=== PATIENT | male | born 1940 | race Caucasian/White ===

== ENCOUNTER 2018-09-28 15:19 | Inpatient (IN) | payer OTHER, MEDICAID ==
[~2018-09-28] VITALS: Ht 170.2 cm; Wt 51.7 kg
[2018-09-28 18:02] VITALS: BP_SYST 109
[2018-09-28] MEDS ORDERED: LevALBUTEROL HCL 1.25 MG/0.5 ML *CONC.* VIAL.NEB (XOPENEX CONC.) INH PRN (19:00)
[2018-09-28] MEDS ORDERED: ACETAMINOPHEN 325 MG TABLET PO PRN (19:00)
[2018-09-28 19:24] LABS: BASOPHILS % (AUTO) 0.3 % (0.0-2.0); EOSINOPHILS # (AUTO) 0.4 K/uL (0.0-0.4); EOSINOPHILS % (AUTO) 4.6 % (0.0-4.0); HEMATOCRIT 49.2 % (36-54); HEMOGLOBIN 15.9 g/dL (14.0-18.0); LYMPHOCYTES # (AUTO) 2.3 K/uL (1.0-5.5); LYMPHOCYTES % (AUTO) 25.3 % (20.5-51.5); MEAN CORPUSCULAR HEMOGLOBIN 31 pg (27-31); MEAN CORPUSCULAR HGB CONC 32 % (32-36); MEAN CORPUSCULAR VOLUME 97 fL (79.0-98.0); MONOCYTES # (AUTO) 0.7 K/uL (0.0-1.0); MONOCYTES % (AUTO) 7.7 % (1.7-9.3); NEUTROPHILS # (AUTO) 5.7 K/uL (1.8-7.7); NEUTROPHILS % (AUTO) 62.1 % (40.0-70.0); PLATELET COUNT (AUTO) 160 K/uL (130-430); RED BLOOD CELL COUNT(AUTO) 5.08 MIL/uL (4.2-6.2); RED CELL DISTRIBUTION WIDTH 14.3 % (9.0-15.0); WHITE BLOOD COUNT (AUTO) 9.1 K/uL (4.8-10.8)
[2018-09-28 20:07] VITALS: BP_SYST 109
[2018-09-28 20:15] VITALS: BP_SYST 149
[2018-09-28 20:15] LABS: ALANINE AMINOTRANSFERASE 30 U/L (12-78); ANION GAP 3 (5-15); ASPARTATE AMINOTRANSFERASE 34 U/L (10-37); CALCIUM 9.6 mg/dL (8.4-11.0); CHLORIDE 107 mmol/L (98-107); CREATININE 1.04 mg/dL (0.55-1.30); GLUCOSE 139 mg/dL (70-99); SODIUM SERUM 139 mmol/L (136-145); TOTAL BILIRUBIN 0.4 mg/dL (0.0-1.0); UREA NITROGEN, BLOOD 36 mg/dL (8-21)
[2018-09-28 20:18] LABS: POTASSIUM 4.4 mmol/L (3.5-5.1)
[2018-09-28] MEDS ORDERED: CEFEPIME 1 GM in D5W 50 ML IV ONE (21:00)
[2018-09-28] MEDS ORDERED: KCL 20 mEq in 100 mL (PREMIX) 100 ML IV ONE (22:05)
[2018-09-28] MEDS: KCL 20 mEq in 0.45% NS 1000 mL 1,000 ML IV SCH (22:16)
[2018-09-28] MEDS ORDERED: CEFEPIME 1 GM/VIAL (MAXIPIME) ONE (22:19)
[2018-09-28] MEDS: ENOXAPARIN SODIUM 40 MG/0.4 ML SYRINGE SUBCUT SCH (22:21)
[2018-09-28] MEDS: CEFEPIME 1 GM in D5W 50 ML IV SCH (22:23)
[2018-09-28] MEDS: LevALBUTEROL HCL 1.25 MG/0.5 ML *CONC.* VIAL.NEB (XOPENEX CONC.) INH SCH (23:06)
[2018-09-29 00:37] VITALS: BP_SYST 150
[2018-09-29 00:44] LABS: BILIRUBIN,URINE NEGATIVE (NEGATIVE); BLOOD, URINE NEGATIVE (NEGATIVE); CLARITY/URINE CLEAR (CLEAR); COLOR,URINE YELLOW (YELLOW); GLUCOSE,URINE TRACE (NEGATIVE); KETONES,URINE TRACE (NEGATIVE); LEUKOCYTE ESTERASE ,URINE NEGATIVE (NEGATIVE); NITRITE, URINE NEGATIVE (NEGATIVE); PROTEIN URINE NEGATIVE (NEGATIVE); UROBILINOGEN,URINE 0.2 (0.2-1.0)
[2018-09-29] MEDS ORDERED: OLANZapine 2.5 MG TABLET PO ONE (05:00)
[2018-09-29] MEDS: LevALBUTEROL HCL 1.25 MG/0.5 ML *CONC.* VIAL.NEB (XOPENEX CONC.) INH SCH ×3 (07:38→23:00)
[2018-09-29 08:00] VITALS: BP_SYST 133
[2018-09-29] MEDS: TAMSULOSIN HCL 0.4 MG CAP PO SCH (08:44)
[2018-09-29] MEDS: NICOTINE 21 MG/24 HR PATCH.TD24 TD SCH (08:44)
[2018-09-29] MEDS: KCL 20 mEq in 0.45% NS 1000 mL 1,000 ML IV SCH (12:23)
[2018-09-29 12:59] VITALS: BP_SYST 127
[2018-09-29 16:10] VITALS: BP_SYST 137
[2018-09-29 20:02] VITALS: BP_SYST 135
[2018-09-29] MEDS: CEFEPIME 1 GM in D5W 50 ML IV SCH (21:27)
[2018-09-29] MEDS: ENOXAPARIN SODIUM 40 MG/0.4 ML SYRINGE SUBCUT SCH (21:35)
[2018-09-30] MEDS: KCL 20 mEq in 0.45% NS 1000 mL 1,000 ML IV SCH ×2 (01:04→13:00)
[2018-09-30 02:10] VITALS: BP_SYST 126
[2018-09-30 06:07] LABS: % FREE PSA 36.2 % (.); FREE PSA 0.47 ng/mL; PROSTATE SPECIFIC AG TOTAL 1.3 ng/mL (0.0-4.0)
[2018-09-30] MEDS: LevALBUTEROL HCL 1.25 MG/0.5 ML *CONC.* VIAL.NEB (XOPENEX CONC.) INH SCH ×3 (07:00→23:00)
[2018-09-30 08:06] VITALS: BP_SYST 160
[2018-09-30] MEDS: TAMSULOSIN HCL 0.4 MG CAP PO SCH (08:17)
[2018-09-30] MEDS: NICOTINE 21 MG/24 HR PATCH.TD24 TD SCH (08:17)
[2018-09-30 08:36] VITALS: BP_SYST 141
[2018-09-30 11:38] VITALS: BP_SYST 137
[2018-09-30 15:02] VITALS: BP_SYST 132
[2018-09-30] MEDS: PEG 400/HYPROMELLOSE/GLYCERIN 15 ML DROPS OP SCH ×2 (17:00→20:43)
[2018-09-30] MEDS: CEFEPIME 1 GM in D5W 50 ML IV SCH (20:44)
[2018-09-30 20:45] VITALS: BP_SYST 141
[2018-09-30] MEDS: ENOXAPARIN SODIUM 40 MG/0.4 ML SYRINGE SUBCUT SCH (21:12)
[2018-10-01 02:38] VITALS: BP_SYST 130
[2018-10-01] MEDS: KCL 20 mEq in 0.45% NS 1000 mL 1,000 ML IV SCH ×2 (03:10→16:24)
[2018-10-01] MEDS: LevALBUTEROL HCL 1.25 MG/0.5 ML *CONC.* VIAL.NEB (XOPENEX CONC.) INH SCH ×3 (07:22→23:07)
[2018-10-01 08:00] VITALS: BP_SYST 139
[2018-10-01] MEDS: TAMSULOSIN HCL 0.4 MG CAP PO SCH (08:07)
[2018-10-01] MEDS: NICOTINE 21 MG/24 HR PATCH.TD24 TD SCH (08:07)
[2018-10-01] MEDS: PEG 400/HYPROMELLOSE/GLYCERIN 15 ML DROPS OP SCH ×4 (08:08→20:19)
[2018-10-01 13:42] VITALS: BP_SYST 121
[2018-10-01 17:47] VITALS: BP_SYST 129
[2018-10-01 20:00] VITALS: BP_SYST 127
[2018-10-01] MEDS: CEFEPIME 1 GM in D5W 50 ML IV SCH (20:18)
[2018-10-01] MEDS: ENOXAPARIN SODIUM 40 MG/0.4 ML SYRINGE SUBCUT SCH (20:34)
[2018-10-01 23:03] VITALS: BP_SYST 130
[2018-10-02] MEDS: KCL 20 mEq in 0.45% NS 1000 mL 1,000 ML IV SCH (05:39)
[2018-10-02 06:14] LABS: BASOPHILS % (AUTO) 0.4 % (0.0-2.0); EOSINOPHILS # (AUTO) 0.4 K/uL (0.0-0.4); EOSINOPHILS % (AUTO) 5.4 % (0.0-4.0); HEMATOCRIT 41.3 % (36-54); HEMOGLOBIN 13.4 g/dL (14.0-18.0); LYMPHOCYTES # (AUTO) 1.8 K/uL (1.0-5.5); LYMPHOCYTES % (AUTO) 25.2 % (20.5-51.5); MEAN CORPUSCULAR HEMOGLOBIN 31 pg (27-31); MEAN CORPUSCULAR HGB CONC 32 % (32-36); MEAN CORPUSCULAR VOLUME 96 fL (79.0-98.0); MONOCYTES # (AUTO) 0.7 K/uL (0.0-1.0); MONOCYTES % (AUTO) 10.1 % (1.7-9.3); NEUTROPHILS # (AUTO) 4.4 K/uL (1.8-7.7); NEUTROPHILS % (AUTO) 58.9 % (40.0-70.0); PLATELET COUNT (AUTO) 141 K/uL (130-430); RED CELL DISTRIBUTION WIDTH 14.2 % (9.0-15.0); WHITE BLOOD COUNT (AUTO) 7.3 K/uL (4.8-10.8)
[2018-10-02 06:43] LABS: ANION GAP 6 (5-15); CHLORIDE 104 mmol/L (98-107); GLUCOSE 145 mg/dL (70-99); PHOSPHORUS 3.5 mg/dL (2.7-4.5); POTASSIUM 5.1 mmol/L (3.5-5.1); SODIUM SERUM 140 mmol/L (136-145); UREA NITROGEN, BLOOD 15 mg/dL (8-21)
[2018-10-02] MEDS: LevALBUTEROL HCL 1.25 MG/0.5 ML *CONC.* VIAL.NEB (XOPENEX CONC.) INH SCH (07:25)
[2018-10-02 08:00] VITALS: BP_SYST 135
[2018-10-02] MEDS: PEG 400/HYPROMELLOSE/GLYCERIN 15 ML DROPS OP SCH ×2 (08:49→13:09)
[2018-10-02] MEDS: TAMSULOSIN HCL 0.4 MG CAP PO SCH (08:51)
[2018-10-02] MEDS: NICOTINE 21 MG/24 HR PATCH.TD24 TD SCH (08:51)
[2018-10-02 11:55] VITALS: BP_SYST 137
[2018-10-02 12:32] VITALS: BP_SYST 137
== END 2018-10-02 13:35 | DRG 191 ==
LOC: SMU 17:12
PROVIDERS: ADMIT Family Medicine; ATTEND Family Medicine
DX: J44.1 Chronic obstructive pulmonary disease with (acute) exacerbation (principal); N39.0 Urinary tract infection, site not specified; N40.0 Benign prostatic hyperplasia without lower urinary tract symptoms; I50.9 Heart failure, unspecified; M81.0 Age-related osteoporosis without current pathological fracture; F17.200 Nicotine dependence, unspecified, uncomplicated; M19.90 Unspecified osteoarthritis, unspecified site
CPT/HCPCS: 36415; 80048; 80053; 81003; 83735-TC; 84100-TC; 85025; 94640; 94760; 97116-GP; 97530-GP; G0103; J0692; J1650; J3480; J7060; J7612

== ENCOUNTER 2019-01-19 15:00 | Inpatient (IN) | payer OTHER ==
[~2019-01-19] VITALS: Ht 167.6 cm; Wt 53.1 kg
[2019-01-19 17:57] VITALS: BP_SYST 124
[2019-01-19] MEDS ORDERED: ACET-2165 PO (19:25)
[2019-01-19] MEDS ORDERED: TAMS-11 PO (19:25)
[2019-01-19] MEDS ORDERED: MOM PO (19:25)
[2019-01-19] MEDS ORDERED: DOCU-144 PO (19:25)
[2019-01-19] MEDS ORDERED: NICO-680 TD (19:25)
[2019-01-19] MEDS ORDERED: LEVA1.2527 INH (19:25)
[2019-01-19 19:52] LABS: ALANINE AMINOTRANSFERASE 22 U/L (12-78); ALBUMIN 3.2 g/dL (3.4-4.8); ANION GAP 5 (5-15); ASPARTATE AMINOTRANSFERASE 28 U/L (10-37); CALCIUM 8.7 mg/dL (8.4-11.0); CHLORIDE 104 mmol/L (98-107); CREATININE 0.98 mg/dL (0.55-1.30); GLUCOSE 99 mg/dL (70-99); SODIUM SERUM 133 mmol/L (136-145); TOTAL BILIRUBIN 0.5 mg/dL (0.0-1.0); UREA NITROGEN, BLOOD 19 mg/dL (8-21)
[2019-01-19 19:56] LABS: HEMATOCRIT 43.2 % (36-54); HEMOGLOBIN 14.5 g/dL (14.0-18.0); LYMPHOCYTES % (AUTO) 29.4 % (20.5-51.5); MEAN CORPUSCULAR HEMOGLOBIN 32 pg (27-31); MEAN CORPUSCULAR HGB CONC 34 % (32-36); MEAN CORPUSCULAR VOLUME 95 fL (79.0-98.0); NEUTROPHILS % (AUTO) 54.5 % (40.0-70.0); PLATELET COUNT (AUTO) 178 K/uL (130-430); RED BLOOD CELL COUNT(AUTO) 4.57 MIL/uL (4.2-6.2); RED CELL DISTRIBUTION WIDTH 15.2 % (9.0-15.0); WHITE BLOOD COUNT (AUTO) 8.7 K/uL (4.8-10.8)
[2019-01-19 19:57] LABS: BASOPHILS # (AUTO) 0.1 K/uL (0.0-0.2); BASOPHILS % (AUTO) 1.1 % (0.0-2.0); EOSINOPHILS # (AUTO) 0.5 K/uL (0.0-0.4); EOSINOPHILS % (AUTO) 6.3 % (0.0-4.0); LYMPHOCYTES # (AUTO) 2.6 K/uL (1.0-5.5); MONOCYTES # (AUTO) 0.8 K/uL (0.0-1.0); MONOCYTES % (AUTO) 8.7 % (1.7-9.3); NEUTROPHILS # (AUTO) 4.8 K/uL (1.8-7.7)
[2019-01-19] MEDS ORDERED: ACETAMINOPHEN 325 MG TABLET PO PRN (20:45)
[2019-01-19] MEDS ORDERED: MILK OF MAGNESIA 30 ML UDC PO SCH (20:45)
[2019-01-19] MEDS ORDERED: KCL 20 mEq in D5NS 1000 mL 1,000 ML IV SCH (20:45)
[2019-01-19] MEDS: cefTRIAXone 1 GM in D5W 50 ML IV SCH (21:00)
[2019-01-19] MEDS ORDERED: cefTRIAXone 1 GM VIAL ONE (21:30)
[2019-01-19] MEDS ORDERED: AZITHROMYCIN 500 MG/VIAL (ZITHROMAX) IV ONE ×2 (21:30→21:31)
[2019-01-19 22:00] VITALS: BP_SYST 128
[2019-01-19] MEDS: AZITHROMYCIN 500 MG in NS 250 ML IV SCH (22:00)
[2019-01-19] MEDS: DOCUSATE SODIUM 100 MG CAPSULE PO SCH (22:51)
[2019-01-19] MEDS: TEMAZEPAM 15 MG CAPSULE PO SCH (22:51)
[2019-01-19] MEDS: D5NS 1,000 ML IV SCH (23:49)
[2019-01-19 23:53] VITALS: BP_SYST 136
[2019-01-20] MEDS ORDERED: LevALBUTEROL HCL 1.25 MG/0.5 ML *CONC.* VIAL.NEB (XOPENEX CONC.) INH PRN (04:45)
[2019-01-20 05:35] VITALS: BP_SYST 136
[2019-01-20 07:26] LABS: ALANINE AMINOTRANSFERASE 16 U/L (12-78); ALBUMIN 3.3 g/dL (3.4-4.8); ANION GAP 3 (5-15); ASPARTATE AMINOTRANSFERASE 19 U/L (10-37); CALCIUM 8.7 mg/dL (8.4-11.0); CHLORIDE 108 mmol/L (98-107); GLUCOSE 94 mg/dL (70-99); POTASSIUM 4.5 mmol/L (3.5-5.1); SODIUM SERUM 140 mmol/L (136-145); TOTAL BILIRUBIN 0.4 mg/dL (0.0-1.0); UREA NITROGEN, BLOOD 19 mg/dL (8-21)
[2019-01-20 07:30] LABS: WHITE BLOOD COUNT (AUTO) 6.6 K/uL (4.8-10.8)
[2019-01-20 07:32] LABS: HEMOGLOBIN 14.2 g/dL (14.0-18.0); RED BLOOD CELL COUNT(AUTO) 4.46 MIL/uL (4.2-6.2)
[2019-01-20 07:33] LABS: BASOPHILS # (AUTO) 0.1 K/uL (0.0-0.2); BASOPHILS % (AUTO) 0.9 % (0.0-2.0); EOSINOPHILS # (AUTO) 0.4 K/uL (0.0-0.4); HEMATOCRIT 42.2 % (36-54); LYMPHOCYTES # (AUTO) 2.4 K/uL (1.0-5.5); LYMPHOCYTES % (AUTO) 36.9 % (20.5-51.5); MEAN CORPUSCULAR HEMOGLOBIN 32 pg (27-31); MEAN CORPUSCULAR HGB CONC 34 % (32-36); MEAN CORPUSCULAR VOLUME 95 fL (79.0-98.0); MONOCYTES # (AUTO) 0.6 K/uL (0.0-1.0); MONOCYTES % (AUTO) 9.3 % (1.7-9.3); NEUTROPHILS # (AUTO) 3.1 K/uL (1.8-7.7); NEUTROPHILS % (AUTO) 46.9 % (40.0-70.0); PLATELET COUNT (AUTO) 144 K/uL (130-430); RED CELL DISTRIBUTION WIDTH 15.3 % (9.0-15.0)
[2019-01-20 08:03] VITALS: BP_SYST 133
[2019-01-20] MEDS: DOCUSATE SODIUM 100 MG CAPSULE PO SCH ×2 (08:53→21:00)
[2019-01-20] MEDS: NICOTINE 21 MG/24 HR PATCH.TD24 TD SCH ×3 (08:53→09:18)
[2019-01-20] MEDS: TAMSULOSIN HCL 0.4 MG CAP PO SCH (08:54)
[2019-01-20] MEDS: ENOXAPARIN SODIUM 40 MG/0.4 ML SYRINGE SUBCUT SCH (08:56)
[2019-01-20] MEDS: D5NS 1,000 ML IV SCH (12:08)
[2019-01-20 13:10] VITALS: BP_SYST 174
[2019-01-20 15:31] VITALS: BP_SYST 142
[2019-01-20 16:49] VITALS: BP_SYST 146
[2019-01-20 20:00] VITALS: BP_SYST 145
[2019-01-20] MEDS: TEMAZEPAM 15 MG CAPSULE PO SCH (21:11)
[2019-01-20] MEDS: cefTRIAXone 1 GM in D5W 50 ML IV SCH (21:12)
[2019-01-20] MEDS: AZITHROMYCIN 500 MG in NS 250 ML IV SCH (21:54)
[2019-01-21 00:28] VITALS: BP_SYST 140
[2019-01-21] MEDS: D5NS 1,000 ML IV SCH ×2 (05:45→23:57)
[2019-01-21 08:06] VITALS: BP_SYST 129
[2019-01-21] MEDS: DOCUSATE SODIUM 100 MG CAPSULE PO SCH ×2 (09:00→21:00)
[2019-01-21] MEDS: TAMSULOSIN HCL 0.4 MG CAP PO SCH (09:06)
[2019-01-21] MEDS: ENOXAPARIN SODIUM 40 MG/0.4 ML SYRINGE SUBCUT SCH (09:07)
[2019-01-21 11:54] VITALS: BP_SYST 136
[2019-01-21] MEDS ORDERED: NICOTINE 21 MG/24 HR PATCH.TD24 TD ONE (16:00)
[2019-01-21] MEDS ORDERED: KETOROLAC TROMETHAMINE 15 MG VIAL IVP PRN (18:45)
[2019-01-21 20:00] VITALS: BP_SYST 147
[2019-01-21] MEDS: TEMAZEPAM 15 MG CAPSULE PO SCH (21:05)
[2019-01-21] MEDS: cefTRIAXone 1 GM in D5W 50 ML IV SCH (21:10)
[2019-01-21] MEDS: AZITHROMYCIN 500 MG in NS 250 ML IV SCH (21:11)
[2019-01-22 01:32] VITALS: BP_SYST 118
[2019-01-22] MEDS: DOCUSATE SODIUM 100 MG CAPSULE PO SCH ×2 (09:00→21:00)
[2019-01-22] MEDS: NICOTINE 21 MG/24 HR PATCH.TD24 TD SCH (09:29)
[2019-01-22] MEDS: TAMSULOSIN HCL 0.4 MG CAP PO SCH (09:30)
[2019-01-22] MEDS: ENOXAPARIN SODIUM 40 MG/0.4 ML SYRINGE SUBCUT SCH (09:31)
[2019-01-22 11:31] VITALS: BP_SYST 144
[2019-01-22 15:11] VITALS: BP_SYST 144
[2019-01-22] MEDS: D5NS 1,000 ML IV SCH ×2 (17:10→21:24)
[2019-01-22 20:00] VITALS: BP_SYST 146
[2019-01-22] MEDS: TEMAZEPAM 15 MG CAPSULE PO SCH (21:23)
[2019-01-22] MEDS: cefTRIAXone 1 GM in D5W 50 ML IV SCH (21:24)
[2019-01-22] MEDS: AZITHROMYCIN 500 MG in NS 250 ML IV SCH (21:24)
[2019-01-23 00:36] VITALS: BP_SYST 135
[2019-01-23] MEDS: D5NS 1,000 ML IV SCH (08:00)
[2019-01-23 08:17] VITALS: BP_SYST 149
[2019-01-23] MEDS: DOCUSATE SODIUM 100 MG CAPSULE PO SCH (08:20)
[2019-01-23] MEDS: NICOTINE 21 MG/24 HR PATCH.TD24 TD SCH (08:21)
[2019-01-23] MEDS: ENOXAPARIN SODIUM 40 MG/0.4 ML SYRINGE SUBCUT SCH (08:23)
[2019-01-23] MEDS: TAMSULOSIN HCL 0.4 MG CAP PO SCH (08:29)
[2019-01-23 12:08] VITALS: BP_SYST 166
[2019-01-23 12:50] VITALS: BP_SYST 166
[2019-01-23 15:27] VITALS: BP_SYST 159
== END 2019-01-23 15:25 | DRG 178 ==
LOC: SMU 17:33 → STU 18:38 → SMU 01-21 17:30
PROVIDERS: ADMIT Family Medicine; ATTEND Family Medicine
DX: J15.6 Pneumonia due to other Gram-negative bacteria (principal); J44.0 Chronic obstructive pulmonary disease with (acute) lower respiratory infection; J44.1 Chronic obstructive pulmonary disease with (acute) exacerbation; M19.90 Unspecified osteoarthritis, unspecified site; N40.0 Benign prostatic hyperplasia without lower urinary tract symptoms; F03.90 Unspecified dementia, unspecified severity, without behavioral disturbance, psychotic disturbance, mood disturbance, and anxiety; F17.200 Nicotine dependence, unspecified, uncomplicated
CPT/HCPCS: 36415; 71045; 80053; 85025; 87081; G0378; J0456; J0696; J1650; J7042; J7050; J7060

== ENCOUNTER 2019-04-22 19:21 | Emergency (ER) | payer OTHER ==
[~2019-04-22] VITALS: Ht 167.6 cm; Wt 53.5 kg
[~2019-04-22 19:21] MED LIST: ACET-2165 PO; DOCU-144 PO; LEVA1.2527 INH; MOM PO; NICO-680 TD; TAMS-11 PO
[2019-04-22 19:45] VITALS: BP_SYST 144
[2019-04-22] MEDS ORDERED: ESCI10TA PO (20:16)
[2019-04-22] MEDS ORDERED: LEVE250T2 PO (20:16)
[2019-04-22] MEDS ORDERED: ASA81 PO (20:16)
[2019-04-22] MEDS ORDERED: PROP10TA10 PO (20:16)
[2019-04-22] MEDS ORDERED: IPRATROPIUM/ALBUTEROL SULFATE 3 ML AMPUL.NEB (DUONEB) INH ONE (21:15)
[2019-04-22] MEDS ORDERED: cefTRIAXone 1 GM VIAL IM ONE (21:30)
[2019-04-22] MEDS ORDERED: AZITHROMYCIN 250 MG TABLET PO ONE (21:30)
[2019-04-22 21:31] LABS: BASOPHILS # (AUTO) 0.1 K/uL (0.0-0.2); BASOPHILS % (AUTO) 0.8 % (0.0-2.0); EOSINOPHILS # (AUTO) 0.5 K/uL (0.0-0.4); HEMOGLOBIN 13.4 g/dL (14.0-18.0); MEAN CORPUSCULAR HEMOGLOBIN 31 pg (27-31); MONOCYTES # (AUTO) 0.7 K/uL (0.0-1.0); NEUTROPHILS # (AUTO) 3.9 K/uL (1.8-7.7); PLATELET COUNT (AUTO) 107 K/uL (130-430)
[2019-04-22 21:36] LABS: EOSINOPHILS % (AUTO) 6.3 % (0.0-4.0); HEMATOCRIT 40.3 % (36-54); LYMPHOCYTES % (AUTO) 28.3 % (20.5-51.5); MEAN CORPUSCULAR HGB CONC 33 % (32-36); MEAN CORPUSCULAR VOLUME 94 fL (79.0-98.0); MONOCYTES % (AUTO) 10.2 % (1.7-9.3); NEUTROPHILS % (AUTO) 54.4 % (40.0-70.0); RED BLOOD CELL COUNT(AUTO) 4.31 MIL/uL (4.2-6.2); RED CELL DISTRIBUTION WIDTH 14.9 % (9.0-15.0); WHITE BLOOD COUNT (AUTO) 7.2 K/uL (4.8-10.8)
[2019-04-23 05:38] VITALS: BP_SYST 139
== END 2019-04-23 05:38 | disposition home or self-care (01) ==
LOC: SED 19:21
DX: J18.8 Other pneumonia, unspecified organism (principal); J44.1 Chronic obstructive pulmonary disease with (acute) exacerbation; Z79.82 Long term (current) use of aspirin; Z79.899 Other long term (current) drug therapy
CPT/HCPCS: 36415; 71045; 85025; 94640; 96372; 99284; J0696; Q0144

== ENCOUNTER 2020-02-25 17:58 | Emergency (ER) | payer OTHER, MEDICAID ==
[~2020-02-25] VITALS: Ht 167.6 cm; Wt 56.7 kg
[~2020-02-25 17:58] MED LIST changes: +ASA81 PO; +ESCI10TA PO; +LEVE250T2 PO; +PROP10TA10 PO
[2020-02-25 18:03] VITALS: BP_SYST 119
--- NOTE | 2020-02-25 18:03 | NUR ---
Patient to ER bed 6 to gown for evaluation. Side rails up. Report given to Bhargavi CAMPA
--- NOTE | 2020-02-25 18:03 | NUR ---
Patient arrived in the ED with bumps and abrasion on the right forehead and right cheek post witnessed mechanical fall today. Denied any loss of consciousness or dizziness. Denied any chest pain or shortness of breath. Denied any fevers, nausea, vomiting, or chills. Patient is alert and oriented x2, respirations even and unlabored, speaking in full sentences, ambulating with a steady gait. VSS, pain level 1/10. Informed of wait time. Instructed to notify ED staff for any changes in condition or worsening of symptoms. Patient verbalized understanding.
--- NOTE | 2020-02-25 18:05 | NUR ---
ER Dr. Rascon at bedside examining patient.
--- NOTE | 2020-02-25 18:07 | NUR ---
No IV access needed per Dr. Rascon.
--- NOTE | 2020-02-25 18:14 | NUR ---
ECG done at bedside as ordered by Dr. Rascon. Patient tolerated the procedure well. ER Physician given copy of EKG for review.
--- NOTE | 2020-02-25 18:16 | NUR ---
engineering technical specialist at bedside collecting blood specimen as ordered by Dr. Rascon. Patient tolerated the procedure well.
--- NOTE | 2020-02-25 18:35 | NUR ---
Urine specimen collected and dropped off at the lab.
[2020-02-25 18:37] LABS: BASOPHILS # (AUTO) 0.1 K/uL (0.0-0.2); BASOPHILS % (AUTO) 0.9 % (0.0-2.0); EOSINOPHILS # (AUTO) 0.3 K/uL (0.0-0.4); EOSINOPHILS % (AUTO) 4.6 % (0.0-4.0); HEMATOCRIT 44.2 % (36-54); HEMOGLOBIN 14.7 g/dL (14.0-18.0); LYMPHOCYTES % (AUTO) 27.2 % (20.5-51.5); MEAN CORPUSCULAR HEMOGLOBIN 31 pg (27-31); MEAN CORPUSCULAR HGB CONC 33 % (32-36); MEAN CORPUSCULAR VOLUME 92 fL (79.0-98.0); MONOCYTES # (AUTO) 0.6 K/uL (0.0-1.0); MONOCYTES % (AUTO) 8.4 % (1.7-9.3); NEUTROPHILS # (AUTO) 4.4 K/uL (1.8-7.7); NEUTROPHILS % (AUTO) 58.9 % (40.0-70.0); PLATELET COUNT (AUTO) 169 K/uL (130-430); RED BLOOD CELL COUNT(AUTO) 4.78 MIL/uL (4.2-6.2); RED CELL DISTRIBUTION WIDTH 15.5 % (9.0-15.0); WHITE BLOOD COUNT (AUTO) 7.5 K/uL (4.8-10.8)
--- NOTE | 2020-02-25 18:38 | NUR ---
Patient is taken to CT via gurney, in stable condition.
[2020-02-25 18:44] LABS: BILIRUBIN,URINE NEGATIVE (NEGATIVE); BLOOD, URINE NEGATIVE (NEGATIVE); CLARITY/URINE CLEAR (CLEAR); COLOR,URINE YELLOW (YELLOW); GLUCOSE,URINE NEGATIVE (NEGATIVE); KETONES,URINE NEGATIVE (NEGATIVE); LEUKOCYTE ESTERASE ,URINE 1+ (NEGATIVE); NITRITE, URINE NEGATIVE (NEGATIVE); PROTEIN URINE NEGATIVE (NEGATIVE); UROBILINOGEN,URINE 0.2 (0.2-1.0)
[2020-02-25 18:51] LABS: ANION GAP 6 (5-15); CALCIUM 8.6 mg/dL (8.4-11.0); CHLORIDE 100 mmol/L (98-107); CREATININE 1.11 mg/dL (0.55-1.30); GLUCOSE 375 mg/dL (70-99); POTASSIUM 4.6 mmol/L (3.5-5.1); SODIUM SERUM 137 mmol/L (136-145); UREA NITROGEN, BLOOD 20 mg/dL (8-21)
[2020-02-25 18:55] LABS: PROTHROMBIN TIME 9.7 SECS (9.5-12.5)
[2020-02-25 18:56] LABS: BACTERIA,URINE FEW /HPF (None Seen); RBC,URINE NONE SEEN /HPF (0-3); WBC,URINE 0-3 /HPF (0-3)
[2020-02-25 18:57] LABS: ALANINE AMINOTRANSFERASE 27 U/L (12-78); ALBUMIN 3.5 g/dL (3.4-4.8); ASPARTATE AMINOTRANSFERASE 15 U/L (10-37); LIPASE 172 U/L (73-393); TOTAL BILIRUBIN 0.4 mg/dL (0.0-1.0)
--- NOTE | 2020-02-25 19:13 | NUR ---
Report given and care transferred to LOKESH Moe.
[2020-02-25] MEDS ORDERED: NACL 0.9% 2,000 ML IV ONE (19:15)
[2020-02-25] MEDS ORDERED: cefTRIAXone 1 GM IVPB PREMIX 50 ML IV ONE (19:15)
[2020-02-25] MEDS ORDERED: INSULIN REGULAR, HUMAN 10 UNITS/0.1 ML INJ IVP ONE (19:15)
--- NOTE | 2020-02-25 19:50 | NUR ---
Spoke with Mazin Goodman. Informed pt will be discharged once IV antibiotics complete. 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
--- NOTE | 2020-02-25 21:10 | NUR ---
Patient given written and verbal discharge instructions and verbalizes understanding. ER MD discussed with patient the results and treatment provided. Patient in stable condition. ID arm band removed. IV catheter removed intact and dressing applied, no active bleeding. Rx of Keflex, Neosporin, Tylenol given. Patient educated on pain management and to follow up with PMD. Pain Scale 0. Opportunity for questions provided and answered. Medication side effect fact sheet provided.
[2020-02-25 21:11] VITALS: BP_SYST 112
== END 2020-02-25 21:11 | disposition home or self-care (01) ==
LOC: SED 17:58
DX: S05.11XA Contusion of eyeball and orbital tissues, right eye, initial encounter (principal); N39.0 Urinary tract infection, site not specified; R73.9 Hyperglycemia, unspecified; J44.9 Chronic obstructive pulmonary disease, unspecified; Z79.899 Other long term (current) drug therapy; W18.39XA Other fall on same level, initial encounter; Y93.89 Activity, other specified; Y92.89 Other specified places as the place of occurrence of the external cause; Y99.8 Other external cause status
CPT/HCPCS: 36415; 70450; 70486; 80053; 81000; 82550; 83605; 83690; 84484; 85025; 85610; 85730; 87040; 87086; 96365; 96375; 99285; J0696; J1815; J7030

== ENCOUNTER 2020-09-13 10:40 | Emergency (ER) | payer OTHER, MEDICAID ==
[~2020-09-13] VITALS: Ht 175.3 cm; Wt 52.2 kg
[~2020-09-13 10:40] MED LIST changes: -ACET-2165 PO; +ACET325T PO
[2020-09-13 10:56] VITALS: BP_SYST 140
[2020-09-13 11:08] VITALS: BP_SYST 140
== END 2020-09-13 11:09 | disposition home or self-care (01) ==
LOC: SED 10:40
DX: F03.90 Unspecified dementia, unspecified severity, without behavioral disturbance, psychotic disturbance, mood disturbance, and anxiety (principal); J44.9 Chronic obstructive pulmonary disease, unspecified; Z86.73 Personal history of transient ischemic attack (TIA), and cerebral infarction without residual deficits; Z79.899 Other long term (current) drug therapy; Z79.82 Long term (current) use of aspirin
CPT/HCPCS: 99281